=== PATIENT | male | born 1975 | race Caucasian/White ===

== ENCOUNTER 2020-07-02 08:58 | Emergency (ER) | payer OTHER ==
[~2020-07-02] VITALS: Ht 177.8 cm; Wt 98.0 kg
[2020-07-02 09:05] VITALS: BP 136/91
[2020-07-02] MEDS ORDERED: LIDOCAINE 2% 20 ML VIAL. IJ ONE (09:30)
--- NOTE | 2020-07-02 09:39 | PHYS DOC ---
Past History Past Medical History: No Pertinent History Past Surgical History: Other Additional Past Surgical Histo: PRK Smoking: Non-smoker Alcohol Use: Heavy Drug Use: None Adult General Chief Complaint Chief Complaint: ANIMAL BITE HPI HPI Patient is a 45-year-old male dog bite about 45 minutes prior to presentation. He says he was at the [employer] [place] he was playing with her puppy and he got excited and bit his left index finger. Shortly after the bite he reports running it under water to clean it out and presented for evaluation. Reports no paresthesias or numbness since the bite, and reports no trouble moving his finger. Reports that he thinks the dog that bit him is fully vaccinated. He reports he does not know when his last tetanus was. Reports no daily medications and reports that he is overall a pretty healthy syeda. Reports he is right-hand dominant Review of Systems Review of Systems Constitutional: Denies fever or chills [] Eyes: Denies change in visual acuity, redness, or eye pain [] HENT: Denies nasal congestion or sore throat [] Respiratory: Denies cough or shortness of breath [] Cardiovascular: No additional information not addressed in HPI [] GI: Denies abdominal pain, nausea, vomiting, bloody stools or diarrhea [] : Denies dysuria or hematuria [] Musculoskeletal: Denies back pain or joint pain [] Integument: Denies rash or skin lesions [] Neurologic: Denies headache, focal weakness or sensory changes [] Endocrine: Denies polyuria or polydipsia [] All other systems were reviewed and found to be within normal limits, except as documented in this note. Current Medications Current Medications Current Medications Medications (Trade) Dose Ordered Sig/[facility] Start Time Stop Time Status Last Admin Dose Admin Lidocaine HCl 20 ml 1X ONCE 07/02/20 09:30 07/02/20 09:31 DC Allergies Allergies Allergies Coded Allergies Type Severity Reaction Last Updated Verified No Known Drug Allergies 07/02/20 No Physical Exam Physical Exam Constitutional: Well developed, well nourished, no acute distress, non-toxic appearance. HENT: Normocephalic, atraumatic, bilateral external ears normal, oropharynx moist, no oral exudates, nose normal. Eyes: PERRLA, EOMI, conjunctiva normal, no discharge. Neck: Normal range of motion, no tenderness, supple, no stridor. Cardiovascular:Heart rate regular rhythm, no murmur Lungs & Thorax: Bilateral breath sounds clear to auscultation Abdomen: Bowel sounds normal, soft, no tenderness, no masses, no pulsatile masses. Skin: Warm, dry, no erythema, no rash. Back: No tenderness, no CVA tenderness. Extremities: No tenderness, no cyanosis, no clubbing, ROM intact, no edema. Left index finger has 2 shallow lacerations laterally with no Knievel sign, no evidence of tendon injury or bony abnormality and is otherwise neurovascularly intact. Cap refill less than 3 seconds in all distal digits, finger still bleeding on arrival Neurologic: Alert and oriented X 3, normal motor function, normal sensory function, no focal deficits noted. Psychologic: Affect normal, judgement normal, mood normal. Current Patient Data Vital Signs Vital Signs Date Time Temp Pulse Resp B/P (MAP) Pulse Ox O2 Delivery O2 Flow Rate FiO2 07/02/20 09:05 98.7 95 18 136/91 (106) 99 Room Air EKG EKG [] Radiology/Procedures Radiology/Procedures [] Heart Score C/O Chest Pain: No Risk Factors: Risk Factors: DM, Current or recent (<one month) smoker, HTN, HLP, family history of CAD, obesity. Risk Scores: Risk Factors: DM, Current or recent (<one month) smoker, HTN, HLP, family history of CAD, obesity. Course & Med Decision Making Course & Med Decision Making Hemodynamically stable patient with HPI and physical examination consistent with recent dog bite. No indication for radiographs due to superficial and lateral location of injury along finger without crush and/or significant puncture He is out of date of tetanus, this was updated today. Given dirty mouth of dog, decision was made to treat with antibiotics. Augmentin given and tolerated, prescription subsequently given. No indication for rabies, patient known dog at senior care and will be monitored There was a complication during suture repair. Patient was still briskly bleeding on arrival. Hemostasis was initially achieved with pressure but during repair, rebleeding of proper palmar digital artery on lateral side reoccurred. Direct pressure and subsequent finger tourniquet applied. Given high risk nature of fingers/hand, hand surgeon at [facility] contacted and case reviewed. Recommendations were made to hold hand above head, continue current therapy until bleeding stops and ensure patient still motor, sensory and neurovascularly still intact This was performed, patient was monitored after bleeding had stopped for 30 more minutes without recurrence. Finger was subsequently cleaned off and placed in splint for temporary immobilization until initial sutures could be healed Suture care and recommendations to return to medical provider for evaluation this upcoming week and suture removal consideration in upcoming 5 to 10 days advised I discussed strict return precautions and made specific mention of return precautions that hand surgeon had educated me on with patient, he was understanding. All questions and concerns addressed prior to ER departure Critical Care Time This patient required critical care. Due to the fact that the patient required a significant amount of one on one physician - patient contact time, ordering and review of studies, arranging urgent treatment with development of a management plan, evaluation of patients response to treatment with frequent reassessments, and discussions with other providers this patient required 35 minutes of critical care time. Critical care time was indicated due to the inherent instability and/or potential for instability in this patient. The critical care time that is allocated to this patient is above and beyond any time spent on any other billable procedures performed on this patient. Dragon Disclaimer Dragon Disclaimer This electronic medical record was generated, in whole or in part, using a voice recognition dictation system. Laceration Repair Lac Repair Indication: X2 separate finger lacerations Procedure: The patient was placed in the appropriate position and anesthesia utilizing a total of 4 mm 1% lidocaine without epi used to perform a digital block of left index finger. The area was then cleansed and navigated without any obvious foreign bodies, ligamentous/tendon damage etc. Laceration #1 which was horizontal in nature and on lateral portion of the ventral surface of the hand was repaired with x3 nonabsorbable simple interrupted sutures. Laceration #2 was sutured with x6 simple interrupted sutures and was located laterally from PIP to TIP without any nailbed involvement and/or tendon/bony interruption. The wound area was then dressed with sterile gauze and a splint. Total repaired wound length: Laceration #1 5 mm, laceration #2 2.4 cm. Other Items: Finger splint The patient tolerated the procedure well. Complications: As discussed in MDM, during repair of laceration #2, there was revascularization/bleeding of lateral proper palmar digital artery of affected finger. Direct pressure was applied and there was still bleeding after 15 minutes and so, [facility] hand surgery was contacted and case reviewed. Artery was identified, finger tourniquet was applied and subsequent direct pressure held over artery with hand above heart overhead position as directed. Patient was in this position for approximately 20 minutes when hemostasis was achieved. Patient was then evaluated with hand below heart without any intervention/stimulation without rebleeding. Finger was then cleaned, dressing applied and splint placed without issue and occurrence of rebleeding. Patient had no change in motor or sensory function, remained neurovascularly intact with cap refill less than 3 seconds in all distal digits. Departure Departure: Impression: Primary Impression: Laceration of left index finger with complication Disposition: 01 DC HOME SELF CARE/HOMELESS Condition: STABLE Referrals: DARYL HERNANDEZ DO (PCP) Patient Instructions: Fingertip Laceration, Laceration Care, Adult Additional Instructions: You were seen for a laceration. Keep the area clean and dry. You should return to the ED or your PCP office to get your sutures removed in 7-10 days. As discussed, there is complication with your complicated laceration closure due to close proximity to a finger artery. During management while in the ER, [facility] hand surgery team was contacted and case discussed. We followed proper protocol for such type of arterial injury that resolved your arterial bleed and led to complete and satisfactory skin closure from your bite wound. With that said, you were educated extensively on laceration care instructions and signs and symptoms that if they should arise, should be seen and evaluated by a medical professional. I advise you follow-up with your primary care physician this week not for suture removal but for laceration recheck due to high risk nature of a finger injury like this. There might be consideration for outpatient hand surgery. You were prescribed an antibiotic given nature of dirty dog's mouth, this will help reduce the risk of secondary infection. A major side effect of this medication can include development of C. difficile infection which will result in large amounts of loose, malodorous stool. Return to the ED immediately if you develop any signs of infection like increased pain, redness, fever, or purulent (pus) drainage. Do not take baths, submerge the wound, or use a hot tub until your stitches are removed and the wound is healed. Scripts Hydrocodone/Acetaminophen (Hydrocodone-Acetamin 5-325 mg) 1 Each Tablet 1 EACH PO Q6-8HRS PRN for SEVERE PAIN 7-10, #7 TAB Prov: DAV JENKINS DO 07/02/20 Amoxicillin/Potassium Clav (AUGMENTIN 875-125 TABLET) 1 Each Tablet 1 TAB PO BID for INFECTION for 5 Days, #10 TAB 0 Refills Prov: DAV JENKINS DO 07/02/20 DAV JENKINS DO Jul 02, 2020 09:39
[2020-07-02] MEDS ORDERED: TETANUS AND DIPHTHERIA TOX/PF 0.5 ML VIAL. VAX IM ONE (09:45)
[2020-07-02] MEDS ORDERED: AMOXICILLIN/K CLAV 875/125MG TABLET. ONE (12:35)
[2020-07-02] MEDS ORDERED: AMOX1TAB61 PO (12:40)
[2020-07-02] MEDS ORDERED: HYDR-2759 PO (12:41)
== END 2020-07-02 12:45 | disposition home or self-care (01) ==
LOC: ER 08:58
DX: S61.211A Laceration without foreign body of left index finger without damage to nail, initial encounter (principal); W54.0XXA Bitten by dog, initial encounter; Y93.89 Activity, other specified; Y92.89 Other specified places as the place of occurrence of the external cause; Y99.8 Other external cause status
CPT/HCPCS: 12002; 90471; 90714; 99283; J2001